=== PATIENT | male | born 1960 | race Caucasian/White ===

== ENCOUNTER → 2019-09-08 07:47 | Outpatient (CLI) | payer MEDICARE, OTHER ==
[2015-11-19 09:32] VITALS: BMI 48.4
--- NOTE | ~2019-09-08 | ST ---
PATIENT:VINH ROSE MEDICAL RECORD: [id number] SEX: M LOCATION:[facility] ORDER #: ADMISSION DATE: 09/08/19 AGE OF PATIENT: 59 REFERRING PHYSICIAN: INTERPRETING PHYSICIAN: ZOË SANTIAGO MD DATE OF SERVICE: 09/08/2019 INDICATION: Angina, shortness of breath, atrial fibrillation, and hypertension. He was exercised on standard Lexiscan protocol with 33 mCi of sestamibi injected at peak stress, 11 mCi used previously for rest images. FINDINGS: Gated SPECT reveals a dilated ischemic cardiomyopathy, ejection fraction 25% with decreased thickening and brightening throughout the inferior segments. SPECT imaging Cardiolite was used as myocardial perfusion agent. There is a fixed perfusion defect inferiorly compatible with previous inferior myocardial infarction; however, there is reversible ischemia anteriorly as well as laterally. This includes the basal, mid, apical anterior segments as well as the apical lateral, mid lateral, basal lateral segments. The degree of reversibility is moderate to severe. The amount of myocardium involved is very large. OVERALL IMPRESSION: This is a high risk abnormal nuclear stress test with fixed perfusion defect inferiorly, reversible ischemia anteriorly and laterally suggestive of multivessel coronary artery disease. TRANSINT:[id number] Voice Confirmation ID: [id number] DOCUMENT ID: [id number] ZOË SANTIAGO MD CC: MONET LARRY [id number] DICTATION DATE: 09/09/19 1259 GLOBAL COMPENSATION DIRECTOR: 09/10/19 0357 DEP CLI 09/08/19 [facility] [address] [place] [address]
[~2019-09-08 07:47] MED LIST: ANASTROZOLE1 MG PO; ATIVAN1 MG PO; BAYER CHEWABLE81 MG PO; BENICAR40 MG PO; BETAPACE 80 MG80 MG PO; COUMADIN10 MG PO; HYDROCODONE-APA1 TAB PO; KRILL OIL 1,001 EAC1; LASIX20 MG PO; PLAVIX75 MG PO; SEROPHENE50 MG PO; TESTOSTERON200 MG/ML IM
== END | disposition home or self-care (01) ==
LOC: D.HCCARDIO 07:47
PROVIDERS: ATTEND Internal Medicine Interventional Cardiology
DX: R07.9 Chest pain, unspecified (principal)

== ENCOUNTER 2019-09-19 07:57 | Outpatient (CLI) | payer MEDICARE, OTHER ==
[~2019-09-19] VITALS: Ht 188 cm; Wt 147.7 kg
--- NOTE | ~2019-09-19 | HEMODYNAMI ---
PATIENT:VINH ROSE MEDICAL RECORD: [id number] : 58 LOCATION:[facility] ADMISSION DATE: 09/19/19 Generatedon:09/19/201910:39 Patient name: VINH ROSE Patient #: [id number] SSN: [id number] : 1960 Date of study: 09/19/2019 Page: Of Hemodynamic Procedure Report Patient Data Patient Demographics Procedure consent was obtained First Name: VINH Gender: Male Last Name: MILTON : 1960 Middle Initial: JR Age: 59 year(s) Patient #: [id number] Race: SSN: [id number] Additional ID: [id number] Contact details [address]: [address] [place] [address] State: [place] City: [place] Zip code: [address] Past Medical History Allergies Allergen Reaction Date Comments Reported Penicillins 11/05/2015 Statins 11/05/2015 Other allergy 09/19/2019 PCN, STATINS, Admission Admission Data Admission Date: 09/19/2019 Admission Time: 7:57 Arrival Date: 09/19/2019 Arrival Time: 0:00 Admit Source: Other Insurance Payor: Medicare [facility] #: [id number] Height (in.): 74 BSA: 2.69 (m2) Height (cm.): 187.96 BMI: 42.37 (kg/m2) Weight (lbs.): 330 Weight (kg.): 149.69 Lab Results Lab Result Date: 09/19/2019 Lab Result Time: 0:00 Biochemistry Name Units Result Min Max BUN mg/dl 15 --(--*-)-- 7 18 Creatinine mg/dl 1.1 --(--*-)-- 0.6 1.3 eGFR ml/min 72 *-(----)-- 90 120 NONAFRICAN CBC Name Units Result Min Max Hematocrit % 50.3 --(--*-)-- 42 54 Hemoglobin g/dl 16.7 --(---*)-- 13.5 17.5 Procedure Procedure Types Cath Procedure Diagnostic Procedure LHC Coronaries only Cardioversion External Peripheral Cath Diagnostic Procedure Spotlight Operator Peripheral Procedures Four Vessel Arteriogram Procedure Description Procedure Date Procedure Date: 09/19/2019 Procedure Start Time: 10:21 Procedure End Time: 10:36 Procedure Staff Name Function Elissa Allen RT Monitor Charlette Dunlap RT Monitor Josué Vance RT Scrub Favian Romeo RN Nurse Sammy Shetty MD Performing Physician Procedure Data Cath Procedure Fluoroscopy Diagnostic fluoroscopy Total fluoroscopy Time: 2.4 time: 2.4 min min Diagnostic fluoroscopy Total fluoroscopy dose: 760 dose: 760 mGy mGy Contrast Material Contrast Material Type Amount (ml) Isovue 300 78 Entry Location Entry Primary Successful Side Size Upsize Upsize Entry Closure Succes sful Closure Location (Fr) 1 (Fr) 2 (Fr) Remarks Device Remarks Femoral Right 5 Fr Exoseal artery Estimated blood loss: 5 ml Diagnostic catheters Device Type Used For End Catheter Placement MULTIPACK JL 4.0 5Fr Left Coronary catheter Angiography MULTIPACK 3DRC 5Fr Right Coronary catheter Angiography Procedure Complications No complications Procedure Medications Medication Administration Route Dosage Oxygen 8 l/min Lidocaine 2% added to field 20 Heparin Flush Bag added to field 2 bags (1000units/500ml NS) 0.9% NaCl I.V. 100 ml/hr Versed I.V. 2 mg Fentanyl I.V. 100 mcg Versed I.V. 2 mg Fentanyl I.V. 100 mcg Versed I.V. 2 mg Fentanyl I.V. 100 mcg Hemodynamics Rest BSA: 2.69 (m2) HGB: 16.7 (g/dl) O2 Consumption: Estimated: 331.96 (ml/min) O2 Co nsumption indexed: Estimated:123.41 (ml/min/m) Heart Rate: 86 (bpm) Snapshots Pre Cath Intra NCS Post Cath Vital Signs Time Heart Resp SPO2 etCO2 NIBP (mmHg) Rhythm Pain Sedation Rate (ipm) (%) (mmHg) Status Level (bpm) 10:13:02 78 15 97 0 152/114(123) A-Fib 0 (11) 10(A) , No pain 10:17:28 64 18 99 0 138/95(126) A-Fib 0 (11) 10(A) , No pain 10:21:52 85 17 98 0 140/110(116) A-Fib 0 (11) 10(A) , No pain 10:26:17 82 14 95 0 148/99(120) A-Fib 0 (11) 9(A) , No pain 10:31:32 56 17 96 0 154/93(114) SB 0 (11) 10(A) , No pain 10:36:03 59 13 92 0 139/102(120) SB 0 (11) 10(A) , No pain Medications Time Medication Route Dose Verified Delivered Reason Notes Effe ctiveness by by 10:17:46 Oxygen simple 8 Sammy Buffie used for pt mask l/min Diogenes Romeo RN procedure sleeps with cpap mask 10:18:13 Lidocaine 2% added 20ml Sammy Sammy for local to vial Diogenes Shetty MD anesthetic field 10:18:25 Heparin Flush added 2 Sammy Sammy used for Bag to bags Diogenes Shetty MD procedure (1000units/500ml field NS) 10:18:31 0.9% NaCl I.V. 100 Sammy Ballesteros Per ml/hr Diogenes Romeo RN physician 10:18:47 Versed I.V. 2 mg Sammy Ballesteros for Diogenes Romeo RN sedation 10:18:53 Fentanyl I.V. 100 Sammy Maneie for sadia Roemo RN sedation 10:24:21 Versed I.V. 2 mg Sammyraya Maneie for Diogenes Romeo RN sedation 10:24:25 Fentanyl I.V. 100 Sammy Maneie for sadia Romeo RN sedation 10:28:15 Versed I.V. 2 mg Sammy Ballesteros for Diogenes Romeo RN sedation 10:28:20 Fentanyl I.V. 100 Sammy Buffie for sadia Romeo RN sedation Procedure Log Time Note 9:22:23 Informed consent obtained and on chart 9:23:03 Procedure Status Elective Heart Cath (OP). 9:23:04 Time tracking: Regular hours (M-F 7:00 - 5:00) 9:23:08 Plan of Care:Hemodynamics will remain stable., Cardiac rhythm will remain stable., Comfort level will be maintained., Respiratory function will remain adequate., Patient/ family verbilizes understanding of procedure., Procedure tolerated without complication., Recovers from procedure without complications.. 9:23:12 H&P Date Dictated: 09/19/2019 Within 30 days and on chart., H&P Addendu m completed by physician on day of procedure. (MUST COMPLETE FOR ALL OUTPATIENTS). 9:25:30 Patient allergic to Other allergyPCN, STATINS, 9:32:54 Arrival Date: 09/19/2019 12:00:00 AM 9:33:47 Insurance Payor : Medicare 9:34:09 Patient Height : 74 inches 9:34:16 Patient Weight : 330 lbs 9:34:29 Admit Source: Other 9:34:57 Diagnostic Cath Status : Elective 9:36:05 ACC Patient presents with Stable Angina CCS Anginal Class 3--Marked limitation of physical activity, angina occurs with ordinary activity.. 9:45:20 ACCPatient has been prescribed/administered the following anti-anginal medication within the last 2 weeks: None 9:47:27 Favian Romeo RN sent for patient. Start room use. 9:55:13 Stress Test: yes; abnormal INFERIORLY, ANTERIORLY AND LATERALLY 9:57:59 Lab Result : BUN 15 mg/dl 9:57:59 Lab Result : Creatinine 1.1 mg/dl 9:57:59 Lab Result : eGFR NONAFRICAN 72 ml/min 9:57:59 Lab Result : Hematocrit 50.3 % 9:57:59 Lab Result : Hemoglobin 16.7 g/dl 9:58:08 Lab results completed and on chart. 10:01:56 Risk of Mortality: .2 10:02:04 Risk of blood transfusion: .1 10:02:11 Risk of SKYLAR: 0.7 10:02:26 Patient received from Pre/Post Procedure Room to CCL 1 Alert and oriented. Tansferred to table in Supine position. 10:02:28 Warm blankets applied, and denzel hugger turned on for patient comfort. 10:02:30 Correct patient and procedure confirmed by team. 10:02:32 ECG and BP/O2 sat monitors applied to patient. 10:11:37 Vital chart was started 10:11:38 Baseline sample Acquired. 10:12:00 Rhythm: atrial fibrillation 10:12:09 Full Disclosure recording started 10:12:10 - 10:12:11 Pre-procedure instructions explained to patient. 10:12:12 Pre-op teaching completed and patient verbalized understanding. 10:12:20 Family in patients room. 10:12:23 Patient NPO since Midnight. 10:12:33 Is the patient allergic to Iodine/contrast media? No. 10:12:37 Was the patient premedicated? Yes 10:12:40 Is patient on blood thinner?Yes 10:12:51 ACC The patient was administered the following blood thiners within the last DOSE : Coumadin LOVENOX- THURSDAY PM 10:14:28 Patient diabetic? No. 10:14:31 ----Pre-sedation anethsthesia assessment.---- 10:14:35 Previous problem with sedation/anesthesia? No ? 10:14:38 Snore? Yes 10:14:40 Sleep apnea? Yes 10:14:43 Deviated septum? No 10:14:45 Opens mouth fully? Yes 10:14:47 Sticks out tongue? Yes 10:15:16 Airway obstruction? Yes SLEEP APNEA WEARS CPAP AT NIGHT 10:15:22 Dentures? No ? 10:15:33 Pre procedure: right dorsailis pedis pulse 1+ Palpable, but thready & weak; easily obliterated 10:15:41 Patient pain scale 0/10 ?. 10:15:52 IV patent on arrival in left hand with 0.9% NaCl at [facility]. 10:16:03 Right groin area was prepped with chlora-prep and draped in sterile fashion 10:16:09 Alarms reviewed by R. N. 10:16:10 Sharps counted by scrub and verified by R.N. 10:16:11 Physician arrived 10:16:12 --------ALL STOP TIME OUT------ 10:16:13 Final Timeout: patient, procedure, and site verified with staff and physician. All members of the team are in agreement. 10:16:16 Right groin site verified by team. 10:16:23 Fire Safety Assessment: A--An alcohol-based skin anteseptic being used preoperatively., C--Open oxygen or nitrous oxide is being used., D--An ESU, laser, or fiber-optic light is being used. 10:16:34 Physical assessment completed. ASA score P 3 - A patient with severe systemic disease as per Sammy Shetty MD. 10:16:42 2) 60-89 Mildly reduced kidney function, and other findings (as for stage 1) point to kidney disease. 10:16:48 Maximum allowable contrast dose (3.7 X eGFR X 0.75)199 ml. 10:16:55 Sedation plan: IV Moderate Sedation Medication:Versed, Fentanyl 10:17:05 Use device set Femoral Dx 10:17:07 ACIST Syringe (50122) opened to sterile field. 10:17:08 Bag Decanter (2002S) opened to sterile field. 10:17:09 Medline Cath Pack ([id number]) opened to sterile field. 10:17:11 ACIST Hand Control (78936) opened to sterile field. 10:17:11 ACIST Manifold (36418) opened to sterile field. 10:17:13 DIAGNOSTIC Multipack 5Fr catheter set (AB3876) opened to sterile field. 10:17:17 Tegaderm 4 x 4 (1626W) opened to sterile field. 10:17:19 SHEATH 5FR Homestead (EPU013) opened to sterile field. 10:17:20 EMERALD Guide Wire (702-750) opened to sterile field. 10:17:46 Oxygen 8 l/min simple mask was administered by Favian Romeo RN; used for procedure; pt sleeps with cpap mask Verbal order read back and verified. 10:18:13 Lidocaine 2% 20ml vial added to field was administered by Sammy Shetty MD; for local anesthetic; Verbal order read back and verified. 10:18:25 Heparin Flush Bag (1000units/500ml NS) 2 bags added to field was administered by Sammy Shetty MD; used for procedure; Verbal order read back and verified. 10:18:29 Zero performed for pressure channel P1 10:18:31 0.9% NaCl 100 ml/hr I.V. was administered by Favian Romeo RN; Per physician; Verbal order read back and verified. 10:18:47 Versed 2 mg I.V. was administered by Buffie Romeo RN; for sedation; Verbal order read back and verified. 10:18:53 Fentanyl 100 mcg I.V. was administered by Favian Romeo RN; for sedation; Verbal order read back and verified. 10:20:50 Procedure type changed to Cath procedure, Diagnostic procedure, LHC, Coronaries only, Cardioversion External, Peripheral Cath Diagnostic Procedure, Spotlight Operator Peripheral Procedures, Four Vessel Arteriogram 10:21:01 Procedure started. 10::21 Zero performed for pressure channel P1 10::44 Local anesthetic to right femoral artery with Lidocaine 2% by Sammy Shetty MD.INITIAL ACCESS ONLY 10:23:11 A 5 Fr sheath was inserted into the Right Femoral artery 10::30 Zero performed for pressure channel P1 10::37 Zero performed for pressure channel P1 10::44 Injector settings: Ml/sec: 6, Volume: 3, 10:24:13 A MULTIPACK JL 4.0 5Fr catheter was advanced over the wire and used for Left Coronary Angiography. 10:24:21 Versed 2 mg I.V. was administered by Favian Romeo RN; for sedation; Verbal order read back and verified. 10:24:25 Fentanyl 100 mcg I.V. was administered by Favian Romeo RN; for sedation; Verbal order read back and verified. 10:24:53 LCA angiography performed. 10:26:02 Catheter removed. 10:26:11 A MULTIPACK 3DRC 5Fr catheter was advanced over the wire and used for Right Coronary Angiography. 10:26:24 RCA angiography performed. 10:26:34 Injector settings: Ml/sec: 3, Volume: 6, 10:27:37 Left carotid angiography performed. 10:28:15 Versed 2 mg I.V. was administered by Favian Romeo RN; for sedation; Verbal order read back and verified. 10:28:20 Fentanyl 100 mcg I.V. was administered by Favian Romeo RN; for sedation; Verbal order read back and verified. 10:28:20 Right carotid angiography performed. 10:28:43 Catheter removed. 10:28:56 Quick Combo opened to sterile field. 10:29:08 ------Cardioversion------ 10:29:10 Quick combo pads placed on patients chest and back. 10:30:29 Defibrillator synced and charged to 275 Joules. 10:30:37 Shock delivered. 10:30:53 Patient cardioverted to sinus bradycardia. 10:31:24 EXOSEAL 5Fr (EX500) opened to sterile field. 10:31:44 Sheath removed intact; hemostasis achieved with Exoseal to the Right Femoral artery. 10:31:51 Procedure ended.(Physican Out) 10:32:42 Contrast amount:Isovue 300 78ml. 10:32:47 Maximum allowable dose exceeded? No. 10:32:59 Fluoroscopy time 02.40 minutes. 10:33:05 Fluoroscopy dose: 760 mGy 10:33:05 Flurop Dose total: 760 10:33:21 Dose Area Product 89120 mGy/cm. 10:33:24 Sharps counted by scrub and verified by R.N. 10:33:27 Insertion/operative site no bleeding no hematoma. 10:33:34 Post-op/insertion site Right Femoral artery dressed using a 4 x 4 and Tegaderm. 10:33:40 Post right femoral artery:stable 10:33:42 Post Procedure Pulses reassessed and unchanged 10:33:47 Post-procedure physical assessment completed. ASA score P 3 - A patient with severe systemic disease as per Sammy Shetty MD. 10:34:06 Post procedure rhythm: sinus bradycardia 10:34:13 Estimated blood loss: 5 ml 10:34:14 Post procedure instruction explained to patient.Patient verbalizes understanding. 10:34:17 Patient needs reinforcement of post procedure teaching. 10:35:25 Procedure and supply charges have been captured, reviewed, submitted an d are correct. 10:36:06 Procedure Complication : No complications 10:36:09 Vital chart was stopped 10:36:15 [facility] Findings: mild to moderate CAD (<70%) 10:36:26 4Vessel Findings: mild to moderate disease (<70%, see procedure notes) 10:36:27 Operative report dictated upon procedure completion. 10:36:29 See physician's report for complete and final results. 10:36:31 Report given to Pre/Post Procedure Room. 10:36:36 Patient transfered to Pre/Post Procedure Room with Stretcher. 10:36:39 Procedure ended. 10:36:39 Full Disclosure recording stopped 10:37:07 End room use (Document Last) Device Usage Item Name Manufacture Quantity Catalog Hospital Part Current Minima l Lot# / Number Charge Number Stock Stock Serial# Code ACIST Acist 1 [id number] [id number] [id number] [id number] 20 Syringe Medical (19988) Systems Inc Bag Microtek 1 2001S 937990 36904 949584 5 Decanter Medical Inc. () Medline Medline 1 [id number] 419367 74379 609649 5 Cath Pack ([id number]) ACIST Hand Acist 1 88598 487714 820343 452229 5 Control Medical (74280) Systems Inc ACIST Acist 1 86469 728570 949766 912184 5 Manifold Medical (54674) Systems Inc DIAGNOSTIC Cardinal 1 [id number] 795266 28019 289580 30 CleverA[employer] Health 5Fr catheter set (DC1894) Tegaderm 4 3M 1 1626W 735023 368881 200551 5 x 4 (1626W) SHEATH 5FR Terumo 1 [id number] 075243 705711 723837 5 Homestead (MWR083) EMERALD Cardinal 1 502455 583980 295431 004254 [address] [facility] (502455) MULTIPACK Cardinal 1 [id number] 5 JL 4.0 5Fr Health catheter MULTIPACK Cardinal 1 590807 5 3DRC 5Fr Health catheter Quick Combo Edge Systems 1 [id number] 661210 670586 770177 5 EXOSEAL 5Fr Cardinal 1 EX500 308768 043935 460352 10 (EX500) Health Signature Audit Theodore Stage Time Signature Unsigned Intra-Procedure 09/19/2019 Elissa 10:37:52 AM Tiffany RT(R) (CV) Intra-Procedure 09/19/2019 Favian Romeo RN 10:38:40 AM Intra-Procedure 09/19/2019 Sammy Shetty 10:39:27 AM [facility] [address] [place] [address]
[2019-09-19] MEDS ORDERED: PROPAFENONE HC225 MG PO (08:51)
[2019-09-19] MEDS ORDERED: LOVENOX120 MG/0.8 SC (08:53)
[2019-09-19 09:02] VITALS: BP 138/101; Ht 188 cm; Wt 147.7 kg
[2019-09-19 09:18] LABS: BASOPHILS 1.5 % (0-2); EOSINOPHILS 4.6 % (0-7); HEMATOCRIT 50.3 % (42.0-54.0); HEMOGLOBIN 16.7 g/dL (13.5-17.5); IMMATURE GRANULOCYTES 0.2 % (0-5); LYMPHOCYTES 31.5 % (15-50); MCH 27.8 pg (26.0-34.0); MCHC 33.2 g/dL (31.0-37.0); MCV 83.8 fL (80.0-100.0); MEAN PLATELET VOLUME 9.4 fL (7.4-10.4); MONOCYTES 9.8 % (2-11); NEUTROPHILS 52.4 % (40-80); PLATELET COUNT 172 10x3/uL (130-400); RDW 15.9 % (11.5-14.5); WBC 5.4 10x3/uL (4.8-10.8)
[2019-09-19 09:24] LABS: INR 1.51 (0.85-1.17); PROTIME 17.6 SECONDS (11.6-15.0)
[2019-09-19 09:39] LABS: ANION GAP 10.2 mmol/L (8-16); CALCIUM 8.8 mg/dL (8.5-10.1); CARBON DIOXIDE 30.3 mmol/L (21.0-32.0); CHOL - HDL RATIO 8.4 ratio (2.3-4.9); CREATININE - SERUM 1.1 mg/dL (0.6-1.3); LDL-HDL RATIO 6.2 ratio (1.5-3.5); POTASSIUM - SERUM 5.5 mmol/L (3.5-5.1)
--- NOTE | 2019-09-19 10:45 | NUR ---
PT ARRIVED BY STRETCHER. PLACED ON MONITORS. ASSESSMENT COMPLETED. FAMILY AT BEDSIDE.
--- NOTE | 2019-09-19 11:00 | NUR ---
PT RESTING COMFORTABLY. VSS. RIGHT GROIN DRESSING C/D/I. NO S/S OF HEMATOMA NOTED. CALL LIGHT WITHIN REACH. FAMILY AT BEDSIDE.
--- NOTE | 2019-09-19 11:30 | NUR ---
RIGHT GROIN DRESSING C/D/I. NO S/S OF HEMATOMA NOTED. CALL LIGHT WITHIN REACH. FAMILY AT BEDSIDE. HEAD OF BED INC TO 30 DEGREES. TOLERATED WELL. DENIES NAUSEA/PAIN. SET UP WITH SANDWICH TRAY AND DRINK.
--- NOTE | 2019-09-19 12:00 | NUR ---
RIGHT GROIN DRESSING C/D/I. NO S/S OF HEMATOMA NOTED. PIV D/C'D WITH CATH TIP INTACT. TOLERATED WELL. PT INSTRUCTED TO GET UP AND DRESSED. FAMILY AT BEDSIDE TO ASSIST.
--- NOTE | 2019-09-19 12:15 | NUR ---
PT TO RESTROOM. VOIDED WITHOUT DIFFICULTY. DISCUSSED DISCHARGE INSTRUCTIONS WITH PT AND PT'S FAMILY. THEY VOICED UNDERSTANDING. RIGHT GROIN DRESSING C/D/I. NO S/S OF HEMATOMA NOTED.
--- NOTE | 2019-09-19 12:30 | NUR ---
PT TAKEN OUT TO VEHICLE BY WHEELCHAIR. NO S/S OF DISTRESS NOTED. ALL BELONINGS AND PAPERWORK IN HAND.
--- NOTE | 2019-09-22 15:25 | OP ---
PATIENT NAME: VINH ROSE MEDICAL RECORD: [id number] :58 LOCATION:D.CAT ADMISSION DATE: SURGEON: ZOË SANTIAGO MD DATE OF OPERATION: 09/19/2019 PROCEDURE PERFORMED: Four-vessel carotid, vertebral angiography and DC cardioversion. INDICATIONS: TIA. PROCEDURE: After informed consent was obtained, after a detailed description of risks, benefits as well as alternative therapies, the patient elected to proceed with angiogram and cardioversion. The right femoral area had a preexisting sheath from coronary angiography. All catheters were exchanged through the sheath. There was subselection of each subclavian as well as the left carotid. FINDINGS: RIGHT SIDE: The common internal and external carotids have no significant angiographic disease. Vertebral artery has no significant angiographic disease. LEFT SYSTEM: The common internal and external carotids have no significant angiographic disease. Vertebral artery has no significant angiographic disease. DC CARDIOVERSION. He received IV conscious sedation with Versed, fentanyl, continuous heart rate, O2 saturation, blood pressure monitoring all undertaken, all of which remained stable. He received 1 shock at 275 joules restoring sinus rhythm. OVERALL IMPRESSION: No significant carotid vascular disease is present. Successful DC cardioversion from atrial fibrillation to sinus rhythm. TRANSINT:[id number] Voice Confirmation ID: [id number] DOCUMENT ID: [id number] ZOË SANTIAGO MD at 1525 CC: [id number] DICTATION DATE: 09/19/19 1037 GOLF PROFESSIONAL: 09/19/19 2204 DEP CLI 09/19/19 [place] [address] [place] [address]
--- NOTE | 2019-09-22 15:25 | OP ---
PATIENT NAME: VINH ROSE MEDICAL RECORD: [id number] :58 LOCATION:D.CAT ADMISSION DATE: SURGEON: ZOË SANTIAGO MD DATE OF OPERATION: 09/19/2019 PROCEDURE: Selective coronary angiography. INDICATION: Angina, cardiomyopathy, abnormal nuclear stress test. DESCRIPTION OF PROCEDURE: After informed consent was obtained and after a detailed description of the risks, benefits as well as alternative therapies, the patient elected to proceed with angiogram. The right femoral area was prepped and draped in normal sterile fashion. Right femoral artery was cannulated via modified Seldinger technique with placement of 5-Bulgarian sheath. All catheters exchanged through this sheath. FINDINGS: Left ventriculogram was not performed secondary to artificial aortic valve. SELECTIVE CORONARY ANGIOGRAPHY: Left main, left anterior descending, left circumflex, and right coronary artery are all smooth-walled vessels with no angiographic evidence of coronary artery disease. OVERALL IMPRESSION: No angiographic evidence of coronary artery disease. Standard medical management and treatment of the cardiomyopathy and dysrhythmia. TRANSINT:[id number] Voice Confirmation ID: [id number] DOCUMENT ID: [id number] ZOË SANTIAGO MD at 1525 CC: [id number] DICTATION DATE: 09/19/19 1037 MANAGER OF ENGINEERING: 09/19/19 2201 [facility] CLI 09/19/19 [place] [id number] [place] [address]
== END 2019-09-19 12:30 | disposition home or self-care (01) ==
LOC: D.CATH 07:57
PROVIDERS: ATTEND Internal Medicine Interventional Cardiology
DX: G45.9 Transient cerebral ischemic attack, unspecified (principal); I42.9 Cardiomyopathy, unspecified; R94.39 Abnormal result of other cardiovascular function study; I25.119 Atherosclerotic heart disease of native coronary artery with unspecified angina pectoris; R06.02 Shortness of breath; R07.9 Chest pain, unspecified; I48.91 Unspecified atrial fibrillation; R53.81 Other malaise; I44.0 Atrioventricular block, first degree; R00.1 Bradycardia, unspecified; E78.5 Hyperlipidemia, unspecified; I35.8 Other nonrheumatic aortic valve disorders; I11.9 Hypertensive heart disease without heart failure

== ENCOUNTER 2019-10-06 11:20 | Outpatient (CLI) | payer MEDICARE, OTHER ==
[~2019-10-06] VITALS: Ht 188 cm; Wt 147.7 kg
--- NOTE | ~2019-10-06 | HEMODYNAMI ---
PATIENT:VINH ROSE MEDICAL RECORD: [id number] : 58 LOCATION:D[facility]UIN ADMISSION DATE: 10/06/19 Generatedon:10/06/201914:09 Patient name: VINH ROSE Patient #: [id number] SSN: [id number] : 1960 Date of study: 10/06/2019 Page: Of Hemodynamic Procedure Report Patient Data Patient Demographics Procedure consent was obtained First Name: VINH Gender: Male Last Name: MILTON : 1960 [facility] Initial: JR Age: 59 year(s) Patient #: [id number] Race: SSN: [id number] Additional ID: [id number] Contact details Address: [address] [place] [address] State: [place] City: [place] Zip code: [address] Past Medical History Allergies Allergen Reaction Date Comments Reported Penicillins 11/05/2015 Statins 11/05/2015 Other allergy 09/19/2019 PCN, STATINS, Other allergy 10/06/2019 pcn/dpkifmg-igq-vxj reductase inhibitors/ [facility] Admission Admission Data Admission Date: 10/06/2019 Admission Time: 11:20 Procedure Procedure Types Cath Procedure Diagnostic Procedure PPM/ICD PPM Dual Implant Sedation Charges Moderate Sedation up to 30 minutes Procedure Description Procedure Date Procedure Date: 10/06/2019 Procedure Start Time: 13:18 Procedure End Time: 14:05 Procedure Staff Name Function Favian Romeo RN Nurse Anant Amaya MD Assisting physician Albino Saleh MD Performing Physician Elissa Allen RT Monitor Charlette Dunlap RT Monitor Yessica Palma RT Scrub Procedure Data Cath Procedure Fluoroscopy Diagnostic fluoroscopy Total fluoroscopy Time: time: 10.9 min 10.9 min Diagnostic fluoroscopy Total fluoroscopy dose: dose: 1181.53 mGy 1181.53 mGy Estimated blood loss: 10 ml Procedure Complications No complications Procedure Medications Medication Administration Route Dosage Oxygen etCO2 Nasal cannula 2 l/min Lidocaine 1% added to field 20 Vancomycin I.V.P.B 1 g Vancomycin Topical 1 g Irrigation 0.9% NaCl Versed I.V. 2 mg Fentanyl I.V. 100 mcg Fentanyl I.V. 100 mcg Versed I.V. 2 mg Versed I.V. 2 mg Hemodynamics Rest Heart Rate: 67 (bpm) Snapshots Pre Cath Intra NCS Post Cath Vital Signs Time Heart Resp SPO2 etCO2 NIBP (mmHg) Rhythm Pain Sedation Rate (ipm) (%) (mmHg) Status Level (bpm) 12:59:26 61 20 94 0 165/120(133) NSR (Missing) 10(A) 13:04:00 59 15 97 0 157/83(112) NSR (Missing) 10(A) 13:09:53 60 16 97 0 157/79(124) NSR (Missing) 10(A) 13:15:20 62 12 96 0 162/111(132) NSR (Missing) 10(A) 13:19:53 61 16 97 0 157/76(123) NSR (Missing) 10(A) 13:24:23 60 18 98 0 158/79(130) NSR (Missing) 10(A) 13:28:43 58 11 96 0 152/88(120) NSR (Missing) 10(A) 13:33:06 84 12 98 0 153/89(140) NSR (Missing) 10(A) 13:37:26 78 11 98 0 145/88(126) NSR (Missing) 10(A) 13:42:58 61 12 97 0 136/86(115) NSR (Missing) 10(A) 13:47:03 58 13 97 0 117/80(94) NSR (Missing) 10(A) 13:51:13 55 13 98 0 131/85(114) NSR (Missing) 10(A) 13:55:27 80 16 98 0 146/92(116) NSR (Missing) 10(A) 13:59:45 79 13 97 0 143/96(113) NSR (Missing) 10(A) 14:03:57 82 16 97 0 147/95(123) NSR (Missing) 10(A) Medications Time Medication Route Dose Verified Delivered Reason Notes Effectiv eness by by 13:00:20 Oxygen etCO2 2 Albino Ballesteros used for Nasal l/min [facility] Romeo RN procedure cannula 13:00:33 Lidocaine added 20ml Albino Ny for local 1% to vial [facility] Bebeto Amaya MD anesthetic field x2 13:00:52 Vancomycin I.V.P.B 1 g Albino Maneie used for [facility] Romeo nursing information systems coordinator 13:01:04 Vancomycin Topical 1 g Albino Maneie used for Irrigation [facility] Bebeto Romeo RN procedure 13:01:12 0.9% NaCl kvo Albino Ballesteros ml/hr [facility] Romeo RN, MD 13:18:52 Versed I.V. 2 mg [address] for [facility] Beb[facility] Romeo RN sedation 13:18:58 Fentanyl I.V. [address] m[address] Bebeto Romeo RN sedation 13:25:55 Fentanyl I.V. [address] for m[address] Bebeto Romeo RN sedation 13:39:16 Versed I.V. 2 mg [address] for [facility] Bebeto Romeo RN sedation 13:50:24 Versed I.V. 2 mg [address] for [facility] Bebeto Romeo RN sedation Procedure Log Time Note 12:38:02 Informed consent obtained and on chart 12:38:23 Procedure Status Elective Heart Cath (OP). 12:38:24 Time tracking: Regular hours (M-F 7:00 - 5:00) 12:38:30 Plan of Care:Hemodynamics will remain stable., Cardiac rhythm will remain stable., Comfort level will be maintained., Respiratory function will remain adequate., Patient/ family verbilizes understanding of procedure., Procedure tolerated without complication., Recovers from procedure without complications.. 12:38:39 H&P Date Dictated: 09/06/2019 Within 30 days and on chart., H&P Addendum completed by physician on day of procedure. (MUST COMPLETE FOR ALL OUTPATIENTS). 12:40:06 Medtronic customer retention representative KELLEN MEYERS present for procedure. 12:40:17 Use device set RUPESH PPM 12:49:16 10/06/19 12:38:17 Favian Romeo RN sent for patient. Start room use:. 12:49:54 Patient received from Pre/Post Procedure Room to CCL 3 Alert and oriented. Tansferred to table in Supine position. 12:49:56 Warm blankets applied, and denzel hugger turned on for patient comfort. 12:49:57 Correct patient and procedure confirmed by team. 12:49:58 ECG and BP/O2 sat monitors applied to patient. 12:50:26 Favian Romeo RN sent for patient. Start room use. 12:51:55 2-0 Ticron Multipack ([id number]) opened to sterile field. 12:51:57 3-0 Vicryl Single Pack [id number] opened to sterile field. 12:51:58 5-0 Monocryl PS2 [id number] opened to sterile field. 12:51:59 Cautery Tip Power Systems Engineer opened to sterile field. 12:52:01 Cautery Pushbutton Pencil opened to sterile field. 12:52:02 Mepilex Dressing ([id number]) opened to sterile field. 12:52:10 Immobilizer Extra Large opened to sterile field. 12:58:04 Vital chart was started 12:58:05 Baseline sample Acquired. 12:59:12 Rhythm: junctional 12:59:15 Full Disclosure recording started 12:59:16 - 12:59:17 Pre-procedure instructions explained to patient. 12:59:18 Pre-op teaching completed and patient verbalized understanding. 12:59:23 Family in patients room. 12:59:30 Patient NPO since Midnight. 13:00:20 Oxygen 2 l/min etCO2 Nasal cannula was administered by Favian Romeo RN; used for procedure; Verbal order read back and verified. 13:00:33 Lidocaine 1% 20ml vial x2 added to field was administered by Anant Amaya MD; for local anesthetic; Verbal order read back and verified. 13:00:52 Vancomycin 1 g I.V.P.B was administered by Favian Romeo RN; used for procedure; Verbal order read back and verified. 13:01:04 Vancomycin Irrigation 1 g Topical was administered by Favian Romeo RN; used for procedure; Verbal order read back and verified. 13:01:12 0.9% NaCl kvo ml/hr was administered by Favian Romeo RN; ; Verbal order read back and verified. 13:01:30 Patient allergic to Other allergypcn/aivtkwy-lnw-qqo reductase inhibitors/ v potassium (from [facility]) 13:01:36 Is the patient allergic to Iodine/contrast media? No. 13:01:41 Was the patient premedicated? Yes 13:01:45 Is patient on blood thinner?Yes 13:01:55 ACC The patient was administered the following blood thiners stoppe d on 09-29-2019: Coumadin 13:03:22 Patient diabetic? No. 13:03:25 ----Pre-sedation anethsthesia assessment.---- 13:03:29 Previous problem with sedation/anesthesia? No ? 13:03:32 Snore? Yes 13:03:34 Sleep apnea? Yes 13:03:37 Deviated septum? No 13:03:39 Opens mouth fully? Yes 13:03:41 Sticks out tongue? Yes 13:04:03 Airway obstruction? Yes sleeps with cpap for apnea 13:04:08 Dentures? No ? 13:04:21 Patient pain scale 0/10 ?. 13:04:50 IV patent on arrival in left forearm with 0.9% NaCl at [facility]. 13:05:26 Left chest area was prepped with chlora-prep and draped in sterile fashion 13:05:28 Alarms reviewed by R. N. 13:05:29 Sharps counted by scrub and verified by R.N. 13:06:13 Pre sharps counted by scrub and verified by RN: Sutures: 7; Sponges: 5; Stick needles: 2; Skin needles: 2; Blade: 1; Cautery: 1 13:06:20 Grounding pad site Left thigh. 13:06:22 Grounding pad site free from injury. 13:14:[address] Generator [id number] opened to sterile field. 13:14:43 Medtronic 4074-58 PPM Lead opened to sterile field. 13:14:47 Medtronic 4574-53 PPM Lead opened to sterile field. 13:14:58 Physician arrived 13:14:59 --------ALL STOP TIME OUT------ 13:15:00 Final Timeout: patient, procedure, and site verified with staff and physician. All members of the team are in agreement. 13:15:04 Left chest site verified by team. 13:15:14 Fire Safety Assessment: A--An alcohol-based skin anteseptic being used preoperatively., B--The operative or invasive procedure is being performed above the xiphoid process or in the oropharynx., C--Open oxygen or nitrous oxide is being used. 13:15:21 Physical assessment completed. ASA score P 2 - A patient with mild systemic disease as per Albino Saleh MD. 13:15:35 Sedation plan: IV Moderate Sedation Medication:Versed, Fentanyl 13:18:30 Procedure started. 13:18:41 Lidocaine 1% was administered to left subclavicular area by Anant Amaya MD . 13:18:52 Versed 2 mg I.V. was administered by Favian Romeo RN; for sedation; Verbal order read back and verified. 13:18:58 Fentanyl 100 mcg I.V. was administered by Favian Romeo RN; for sedation; Verbal order read back and verified. 13:20:49 Incision made to left subclavicular area. 13:24:40 Generator pocket made/opened. 13:25:39 Left subclavian vein accessed with 7Fr Peel Away Sheath. 13:25:43 Left subclavian vein accessed with 7Fr Peel Away Sheath. 13:25:55 Fentanyl 100 mcg I.V. was administered by Favian Romeo RN; for sedation; Verbal order read back and verified. 13:26:28 Ventricular lead inserted and advanced. 13:26:32 Atrial lead inserted and advanced. 13:39:16 Versed 2 mg I.V. was administered by Favian Romeo RN; for sedation; Verbal order read back and verified. 13:42:35 Ventricular lead positioned. 13:42:40 Ventricular lead tested. 13:43:08 Atrial lead positioned. 13:45:24 Atrial lead tested. 13:46:04 Peel-a-way sheath was split and removed. 13:46:09 Peel-a-way sheath was split and removed. 13:50:24 Versed 2 mg I.V. was administered by Favian Romeo RN; for sedation; Verbal order read back and verified. 13:50:59 PPM Dual was attached to lead(s) and inserted into pocket. 13:51:37 PPM Dual was inserted subcutaneously to left chest. 13:52:15 Device pocket was irrigated with Vancomycin. 13:52:44 Atrial lead attachment was completed with 2-0 ticron. 13:52:53 Ventricular lead attachment was completed with 2-0 ticron. 13:54:51 Generator was sutured in place with 2-0 ticron. 13:55:10 Subcutaneous closure was completed with 3-0 vicryl plus. 13:55:18 Skin closure was completed with 5-0 monocryl. 13:56:00 Parameters-- Generator: Mode: AAIR/DDDR. Lower Rate: 60bpm. Upper Rate: 130bpm. 13:56:53 Parameters--Ventricular P/R Wave: 10.1mV. Current: 0.1mA; Threshold: 0.3V; Impedence: 1133OHMS. 13:57:32 Parameters--Atrial P/R Wave: 4.3mV. Current: 1.0mA; Threshold: 0.4V; Impedence: 648OHMS. 13:59:18 Post sharps counted by scrub and verified by RN: Sutures: 7; Sponges: 5 ; Stick needles: 2; Skin needles: 1; Blade: 1; Cautery: 1 14:00:15 Procedure ended.(Physican Out) 14:01:15 Lt Chest incision was dressed with Mepilex dressing. 14:02:16 Fluoroscopy time 10.90 minutes. 14:02:29 Fluoroscopy dose: 1181.53 mGy 14:02:29 Flurop Dose total: 1181.53 14:02:46 Dose Area Product 39338 mGy/cm. 14:02:51 Sharps counted by scrub and verified by R.N. 14:02:59 Insertion/operative site no bleeding no hematoma. 14:03:13 Post Chest area:stable 14:03:21 Post-procedure physical assessment completed. ASA score P 2 - A patient with mild systemic disease as per Albino Saleh MD. 14:03:27 Post procedure rhythm: paced 14:03:32 Estimated blood loss: 10 ml 14:03:34 Post procedure instruction explained to patient.Patient verbalizes understanding. 14:03:36 Patient needs reinforcement of post procedure teaching. 14:04:51 Procedure type changed to Cath procedure, Diagnostic procedure, PPM/ICD , PPM Dual Implant, Sedation Charges, Moderate Sedation up to 30 minutes 14:04:54 Procedure and supply charges have been captured, reviewed, submitted an d are correct. 14:05:26 Procedure Complication : No complications 14:05:31 Vital chart was stopped 14:05:36 Operative report dictated upon procedure completion. 14:05:41 See physician's report for complete and final results. 14:05:44 Report given to Med II. 14:05:50 Patient transfered to [facility] II with Bed. 14:05:54 Full Disclosure recording stopped 14:05:54 Procedure ended. 14:05:58 End room use (Document Last) Device Usage Item Name Manufacture Quantity Catalog Hospital Part Current Minima l Lot# / Serial# Number Charge Number Stock Stock Code 2-0 Ticron Ethicon 0 [id number] 54450 [id number] 5 Multipack ([id number]) 3-0 Vicryl Ethicon 1 [id number] 323405 905614 853594 5 Single Pack [id number] 5-0 Monocryl Ethicon 1 [id number] 867579 708143 753143 5 PS2 Y495G Cautery Tip Microtek 1 [id number] 741490 323541 562169 5 Power Systems Engineer [employer] Cautery Microtek 1 [id number] 021515 38678 359448 5 Pushbutton [employer] Inc[employer] Pencil Mepilex Cardinal 1 [id number] 469958 309611 361970 5 Dressing Health (657809) Immobilizer Cardinal 1 [id number] 718093 879935 909772 5 Extra Large Health Medtronic Medtronic 1 [id number] 746441 4698656 [id number] [id number] EXP:01-30-2021 Generator [id number] Medtronic Medtronic 1 4074-58 354423 689635 705656 5 [id number] 4074-58 PPM EXP:04-20-2021 Lead Medtronic Medtronic 1 4574-53 334908 116939 552053 5 [id number] 4574-53 PPM EXP:05-06-2021 Lead Signature Audit [place] Stage Time Signature Unsigned Intra-Procedure 10/06/2019 Elissa 2:08:16 PM Tiffany RT(R) (CV) Intra-Procedure 10/06/2019 Favian Romeo RN 2:08:55 PM Intra-Procedure 10/06/2019 Albino Taylor 2:09:[address] [facility] [address] [place] [address]
--- NOTE | ~2019-10-06 | OP ---
PATIENT NAME: VINH ROSE MEDICAL RECORD: [id number] :58 LOCATION:D.M2 D.2118 ADMISSION DATE: SURGEON: ANANT GODDARD MD DATE OF OPERATION: 10/06/2019 PREOPERATIVE DIAGNOSES: 1. Sick sinus syndrome with pauses. 2. Coronary artery disease. 3. Atrial fibrillation. POSTOPERATIVE DIAGNOSES: 1. Sick sinus syndrome with pauses. 2. Coronary artery disease. 3. Atrial fibrillation. PROCEDURE: 1. Left subclavian vein dual lead pacemaker placement. 2. Fluoroscopic interpretation. SURGEON: Anant Goddard MD CO-SURGEON: Albino Caballero MD REPORT OF OPERATION: The patient's left chest was prepped and draped in sterile fashion. A 20 mL of 1% lidocaine with epinephrine was infused into the surrounding tissues. A transverse incision was made on the left superior lateral chest and a subcutaneous pouch was made over the pectoral fascia. [place] were used to cannulate the left subclavian vein and guidewires were advanced with ease. Fluoro was used to note that the wires were in good position in the venous system. Dilator trocar devices were placed over the wires and the wires and dilators were removed. The leads were advanced through the trocars and at this point, Dr. Caballero positioned the leads appropriately in the atrium and ventricle. Once the leads were noted to be in good position and they were sutured into place with 0 Ti-Cron. The leads were affixed to the pacemaker, which was placed into the subcutaneous pouch. This was sutured to the pectoral fascia using a 2-0 TiCron. We then irrigated out the wound with antibiotic solution. The subcutaneous tissues were reapproximated with interrupted 3-0 Vicryl and the skin was closed with running subcutaneous 5-0 Monocryl. COMPLICATIONS: None. CONDITION: Stable. ANESTHESIA: Local MAC. BLOOD LOSS: Minimal. TRANSINT:[id number] Voice Confirmation ID: [id number] DOCUMENT ID: [id number] OPERATIVE REPORT [id number] VINH ROSE JR ANANT GODDARD MD CC: [id number] DICTATION DATE: 10/06/19 1404 WET PROCESS TECHNICIAN: 10/06/19 2259 [facility] [address] [place] [address]
[~2019-10-06 11:20] MED LIST changes: +LOVENOX120 MG/0.8 SC; +PROPAFENONE HC225 MG PO
[2019-10-06 12:23] VITALS: BP 169/83; BMI 41.8
[2019-10-06 12:31] LABS: HEMATOCRIT 50.6 % (42.0-54.0); MCH 28.1 pg (26.0-34.0); MCHC 33.6 g/dL (31.0-37.0); MCV 83.6 fL (80.0-100.0); RBC 6.05 10x6/uL (4.20-6.10); RDW 15.9 % (11.5-14.5); WBC 5.4 10x3/uL (4.8-10.8)
[2019-10-06 12:42] LABS: ANION GAP 12.8 mmol/L (8-16); APTT 31.6 SECONDS (22.8-39.4); CARBON DIOXIDE 29.2 mmol/L (21.0-32.0); CREATININE - SERUM 1.3 mg/dL (0.6-1.3); INR 1.31 (0.85-1.17); PROTIME 15.7 SECONDS (11.6-15.0)
[2019-10-06 14:43] VITALS: BP 146/93; Ht 188 cm; Wt 147.7 kg
--- NOTE | 2019-10-06 14:56 | NUR ---
TRANSFER FROM GLAZIER HELPER BY BED. VS WNL. LEFT CHEST DRSG CDI. LEFT ARM IN SLING. CALL LIGHT IN REACH. WILL CONT. PLAN OF CARE.
[2019-10-06 15:51] VITALS: BP 161/102
--- NOTE | 2019-10-06 19:31 | NUR ---
RECEIVED BEDSIDE REPORT. PATIENT IS ALERT AND ORIENTED, SITTING UP IN CHAIR. RESPIRATIONS ARE EVEN AND UNLABORED. DRESSING TO LEFT CHEST C/D/I. LEFT ARM REMAINS IN SLING. NO S/S OF DISTRESS. NO C/OPAIN. CALL LIGHT WITHIN REACH. NEEDS MET. WILL CPOC.
[2019-10-06 20:00] VITALS: BP 156/97
--- NOTE | 2019-10-06 23:26 | NUR ---
PATIENT BP ELEVATED. 156/107. WENT AND ASSESSED PATIENT STATED HE WAS UNCOMFORTABLY. PATIENT TOOK HIS OWN PAIN MED. ATTEMPTED TO REPOSTION L ARM WITH PILLOW AND GAVE PATIENT A WARM PACK.
[2019-10-06 23:41] VITALS: BP 156/107
[2019-10-07 04:00] VITALS: BP 136/94
--- NOTE | 2019-10-07 07:15 | NUR ---
RECEIVED PT IN SITTING IN CHAIR AAOX4 RESP UNLABORED SKIN W/D COLOR WNL DRSG C/D/I TO LT CHEST LT ARM SLING INTACT PT DENIES ANY DISCOMFORT OR NEEDS AT THIS TIME
[2019-10-07 08:00] VITALS: BP 149/92
--- NOTE | 2019-10-07 09:25 | NUR ---
REFUSES FLU SHOT WHEN ASKED FOR DISCHARGE.
--- NOTE | 2019-10-07 11:02 | NUR ---
REVIEWED DISCHARGE INSTRUCTIONS WITH PT STATES UNDERSTANDING COPY GIVEN PT D/CD TO LFA WITH IV CATHETER INTACT SITE FREE OF REDNESS OR EDEMA PT DISCHARGED HOME IN STABLE CONDITION WITH ALL PERSONAL BELONGINGS LEFT UNIT VIA W/C
--- NOTE | 2019-10-10 09:24 | OP ---
PATIENT NAME: VINH ROSE MEDICAL RECORD: [id number] :58 LOCATION:D.CAT ADMISSION DATE: SURGEON: ELIZABETH STUART MD DATE OF OPERATION: 10/06/2019 PROCEDURE: Lead portion of permanent pacemaker placement. INDICATIONS: Sick sinus syndrome, pauses. SURGEON: Dr. Anant Amaya DESCRIPTION OF PROCEDURE: After left subclavian was cannulated via modified Seldinger technique via Dr. Amaya, first under fluoroscopic guidance with some difficulty due to heart size we were able to place the RV lead in the RV apex. After adequate R-wave thresholds were obtained, the right atrial lead was placed into the right atrial appendage. Again his atrium in the right appears to be quite dilated. After adequate thresholds and P waves were obtained, leads were attached to appropriate poles in the generator and the pocket was closed via Dr. Amaya. IMPRESSION: Successful lead portion of permanent pacemaker placement. COMPLICATIONS: None. ESTIMATED BLOOD LOSS: Minimal. DISPOSITION: To the floor, stable. TRANSINT:[id number] Voice Confirmation ID: [id number] DOCUMENT ID: [id number] ELIZABETH STUART MD at 0924 CC: [id number] DICTATION DATE: 10/06/19 1412 LDR RN: 10/06/19 2336 DEP CLI 10/07/19 [id number] [place] [address]
== END 2019-10-07 10:30 | disposition home or self-care (01) ==
LOC: D.CATH 11:20 → D.M2 14:34 → D.CATH 10-07 10:30
PROVIDERS: ATTEND Internal Medicine Interventional Cardiology
DX: I49.5 Sick sinus syndrome (principal); I25.10 Atherosclerotic heart disease of native coronary artery without angina pectoris; I48.91 Unspecified atrial fibrillation; R07.9 Chest pain, unspecified; R06.02 Shortness of breath; I10 Essential (primary) hypertension; R53.81 Other malaise; I05.9 Rheumatic mitral valve disease, unspecified; I44.0 Atrioventricular block, first degree; I44.60 Unspecified fascicular block; E78.5 Hyperlipidemia, unspecified; I35.8 Other nonrheumatic aortic valve disorders

== ENCOUNTER 2019-10-10 18:47 | Emergency (ER) | payer MEDICARE, OTHER ==
[~2019-10-10] VITALS: Ht 188 cm; Wt 147.7 kg
[2019-10-10 18:49] VITALS: Ht 188 cm; Wt 147.7 kg
[2019-10-10 19:26] LABS: BASOPHILS 0.8 % (0-2); EOSINOPHILS 3.9 % (0-7); HEMATOCRIT 51.9 % (42.0-54.0); HEMOGLOBIN 17.4 g/dL (13.5-17.5); IMMATURE GRANULOCYTES 0.2 % (0-5); LYMPHOCYTES 22.1 % (15-50); MCH 28.1 pg (26.0-34.0); MCHC 33.5 g/dL (31.0-37.0); MCV 83.8 fL (80.0-100.0); MEAN PLATELET VOLUME 9.2 fL (7.4-10.4); MONOCYTES 8.2 % (2-11); NEUTROPHILS 64.8 % (40-80); PLATELET COUNT 140 10x3/uL (130-400); RBC 6.19 10x6/uL (4.20-6.10); RDW 15.9 % (11.5-14.5); WBC 6.3 10x3/uL (4.8-10.8)
[2019-10-10 19:44] LABS: APTT 37.6 SECONDS (22.8-39.4); INR 1.14 (0.85-1.17); PROTIME 14.1 SECONDS (11.6-15.0)
[2019-10-10 19:47] LABS: CALC OSMOLALITY 283 mosm/kg (275-300); CALCIUM 8.9 mg/dL (8.5-10.1); CARBON DIOXIDE 24.2 mmol/L (21.0-32.0); CHLORIDE - SERUM 104 mmol/L (98-107); CREATININE - SERUM 1.2 mg/dL (0.6-1.3); GLUCOSE 133 mg/dL (74-106); POTASSIUM - SERUM 3.8 mmol/L (3.5-5.1); SODIUM 140 mmol/L (136-145); UREA NITROGEN 20 mg/dL (7-18); eGFR NON AFRICAN AMERICAN 66 mL/min (90-120)
[2019-10-10 19:51] LABS: ALBUMIN 3.9 g/dL (3.4-5.0); ALKALINE PHOSPHATASE 66 U/L (46-116); BILIRUBIN - TOTAL 2.38 mg/dL (0.2-1.3); CREATINE KINASE 263 UL (21-232); MAGNESIUM - SERUM 2.1 mg/dL (1.8-2.4); PROTEIN - SERUM 7.1 g/dL (6.4-8.2)
[2019-10-10 20:24] LABS: ALT (SGPT) 36 U/L (10-68); CKMB 6.4 U/L (0.0-3.6)
[2019-10-10 20:29] LABS: TROPONIN-I 0.877 ng/mL (0.000-0.060)
[2019-10-10 22:32] VITALS: BP 180/70
== END 2019-10-10 22:33 | disposition short-term general hospital (02) ==
LOC: D.ER 18:47
PROVIDERS: Family Medicine
DX: I63.9 Cerebral infarction, unspecified (principal); I25.10 Atherosclerotic heart disease of native coronary artery without angina pectoris; Z95.0 Presence of cardiac pacemaker; Z95.2 Presence of prosthetic heart valve; R79.89 Other specified abnormal findings of blood chemistry; I10 Essential (primary) hypertension; Z86.73 Personal history of transient ischemic attack (TIA), and cerebral infarction without residual deficits